=== PATIENT | male | born 1975 | race Caucasian/White ===

== ENCOUNTER 2016-09-13 22:51 | Emergency (ER) | payer BC ==
--- NOTE | ~2016-09-13 | EKG ---
PATIENT: TIMOTHY OCONNELL UNIT #: [id number] Ventricular Rate: 102 BPM Atrial Rate: 102 BPM P-R Interval: 146 ms QRS Duration: 110 ms Q-T Interval: 388 ms QTC Calculation(Bezet): 505 ms P [place]: 55 degrees Calculated R [place]: -9 degrees Calculated T [place]: -13 degrees Diagnosis Line: Sinus tachycardia Diagnosis Line: Low voltage QRS Diagnosis Line: Otherwise normal ECG Diagnosis Line: No previous ECGs available Diagnosis Line: Confirmed by ANAND GLASS MD ([id number]) on 09/15/2016 Diagnosis Line: 5:32:42 PM INTERPRETING MD: QUAN SORTO
--- NOTE | ~2016-09-13 | CR72 ---
[facility] A Service of [facility] RADIOLOGY TEXT RESULTS PATIENT: TIMOTHY OCONNELL LOCATION: [facility] : [birth year] UNIT #: [id number] AGE: [address]: Remigio Antunez MD SEX: M ORDER DR: [id number] [facility] [address] [place], [place] [address] [id number] E MR#: [id number] Acc #: [id number] NAME: TIMOTHY OCONNELL : 1975 SEX: M STUDY DATE/TIME: 09/13/2016 22:38 UNIT: [facility] ROOM: STUDY DESCRIPTION: CR Chest Single View Portable Attending Physician: Remigio Antunez M.D. Ordering Physician: Remigio Antunez M.D. Primary Care Physician: Nathen Springer M.D. MEDICAL IMAGING REPORT This report is preliminary unless electronic signature is present EXAM AP portable chest 09/13/2016 22:38 HISTORY Shortness breath, chest pain, cough, congestion today. COMPARISON AP portable chest 09/06/2016 FINDINGS A single AP portable view of the chest shows both lungs to be clear. The heart is normal in size. The mediastinal contour is normal. No significant bone abnormalities are seen. IMPRESSION Normal portable chest. Dictated by... Kristie Solorzano M.D. THIS IS AN ELECTRONICALLY VERIFIED REPORT Kristie Solorzano M.D. at 09/14/2016 10:03 AM JACK/lesa TD: 09/14/2016 09:49 JOB #: [id number] MEDICAL IMAGING REPORT COPY
[2016-09-13 22:44] LABS: BASOPHIL# 0.1 X10e3 (0-0.3); BASOPHIL% 0.5 % (0-2.5); EOSINOPHIL# 0.1 X10e3 (0-0.7); HEMATOCRIT 50.1 % (38.0-50.0); HEMOGLOBIN 17.1 gm/dL (13.0-16.0); LYMPHOCYTE# 2.6 X10e3 (1.0-3.5); LYMPHOCYTE% 18.9 % (17.0-45.0); MEAN CELL VOLUME 89.9 FL (83-96); MEAN CORPUSCULAR HEMOGLOBIN 30.6 PG (28-34); MEAN CORPUSCULAR HGB CONC 34.1 g/dL (30-36); MEAN PLATELET VOLUME 9.9 FL (6.5-11.5); MONOCYTE# 0.8 X10e3 (0-1.0); MONOCYTE% 5.6 % (3.0-12.0); NEUTROPHIL# 10.1 X10e3 (1.5-7.1); PLATELET COUNT 201 X10e3 (140-420); RED BLOOD COUNT 5.57 X10e (3.90-5.60); RED CELL DISTRIBUTION WIDTH 12.8 % (11.0-15.5); WHITE BLOOD COUNT 13.6 X10e3 (4.0-10.5)
[2016-09-13 22:45] LABS: DIFF IND NO
[~2016-09-13 22:51] MED LIST: ALLEGRA-D1 TAB.SR1 PO; DICLOFENAC PO; FAMOTIDINE PO; IMODIUM2 MG PO; METFORMIN HCL500 M1; NAPROSYN500 MG PO; VICODIN 5/500 T1 TAB PO
[2016-09-13 23:05] LABS: ALBUMIN SERUM 4.4 g/dL (3.5-5.0); ALKALINE PHOSPHATASE 55 U/L (32-92); ALT (SGPT) 106 U/L (10-40); AST (SGOT) 61 U/L (10-42); BILIRUBIN, DIRECT 0.2 mg/dL (0.0-0.2); BILIRUBIN,INDIRECT 1.3 mg/dL (0.0-0.9); BILIRUBIN,TOTAL 1.5 mg/dL (0.2-2.0); BLOOD UREA NITROGEN 26 mg/dL (9-23); CALCIUM SERUM 8.5 mg/dL (8.4-10.2); CARBON DIOXIDE 18 mmol/L (22-31); CHLORIDE 91 mmol/L (100-111); CREATININE SERUM 1.3 mg/dL (0.6-1.4); GLOM FILT RATE Estimated ABOVE60 mL/min (>60); GLUCOSE FASTING 349 mg/dL (70-110); PROTEIN TOTAL SERUM 7.2 g/dL (6.0-8.3)
[2016-09-13 23:08] LABS: POTASSIUM 2.9 mmol/L (3.5-5.1); SODIUM 124 mmol/L (135-145)
[2016-09-14 01:21] LABS: POC - CKMB 2.9 ng/mL (0.0-7.9); POC - TROPONIN <0.05 ng/mL (<=0.05)
[2016-09-14 01:23] LABS: POC - CKMB 2.1 ng/mL (0.0-7.9); POC - TROPONIN <0.05 ng/mL (<=0.05)
== END 2016-09-14 01:51 | disposition home or self-care (01) ==
LOC: CED 22:51
PROVIDERS: Emergency Medicine
DX: R06.02 Shortness of breath (principal); R07.9 Chest pain, unspecified; E11.65 Type 2 diabetes mellitus with hyperglycemia; E87.0 Hyperosmolality and hypernatremia; E86.0 Dehydration; I10 Essential (primary) hypertension; Z88.0 Allergy status to penicillin; Z79.899 Other long term (current) drug therapy
CPT/HCPCS: 36415; 71010; 80048; 80076; 82553; 84484; 85025; 93005; 96360; 99284

== ENCOUNTER → 2016-10-25 | Outpatient (CLI) | payer BC ==
--- NOTE | ~2016-10-25 | PFT ---
[id number] [facility] [address] [place], [place] [address] [id number] O MR#: [id number] NAME: TIMOTHY OCONNELL ROOM: SEX: Pranav STUDY DATE/TIME: 10/28/2016 : 1975 AGE: 41 STUDY DESCRIPTION: Attending Physician: Melodie Simon A.P.R.N. Referring Physician: Melodie Simon A.P.R.N. Primary Care Physician: Nathen Springer M.D. PULMONARY DIAGNOSTIC REPORT EXAM Pulmonary Function Study FINDINGS The test meets ATS criteria for acceptability and repeatability. Please see scanned sheet for flow volume loops and actual lung volume values. Spirometry is normal without significant obstruction noted. Flow volume loops show small airway disease. Bronchodilator response is not very significant. Lung volumes are grossly normal. Diffusion capacity is normal. This is consistent with mild asthma or early COPD. Dictated by... Hailey Walters TD: 10/28/2016 20:07 JOB #: [id number] PULMONARY DIAGNOSTIC REPORT Page 1 of 1
== END | disposition home or self-care (01) ==
LOC: CRC 12:55
DX: R06.00 Dyspnea, unspecified (principal); R55 Syncope and collapse; R07.9 Chest pain, unspecified
CPT/HCPCS: 93306; 94060; 94726; 94729